=== PATIENT | female | born 2000 | race Caucasian/White ===

== ENCOUNTER 2019-08-10 22:28 | Inpatient (IN) | payer SELFPAY | END 2019-08-13 11:35 | disposition home or self-care (01) | DRG 885 | DX: F31.81 Bipolar II disorder (principal); R45.851 Suicidal ideations; Z28.21 Immunization not carried out because of patient refusal ==

== ENCOUNTER → 2020-04-17 15:34 | Outpatient (BNVA) | payer OTHER, SELFPAY | PROVIDERS: Visit Provider Nurse Practitioner Family | DX: M54.9 Dorsalgia, unspecified (principal); Z32.01 Encounter for pregnancy test, result positive | CPT/HCPCS: 81000; 81025 ==

== ENCOUNTER 2020-04-20 23:20 | Emergency (ER) | payer OTHER, SELFPAY ==
--- NOTE | 2020-04-21 00:01 | USR_ITS ---
PROCEDURE INFORMATION: Exam: US Pelvis, Transvaginal Exam date and time: 04/20/2020 11:54 PM Age: 20 years old Clinical indication: Pelvic pain TECHNIQUE: Imaging protocol: Real-time transvaginal pelvic ultrasound with image documentation. Transvaginal imaging was used for better evaluation of the endometrium and adnexa. COMPARISON: No relevant prior studies available. FINDINGS: Uterus/cervix: Small amount of fluid in the uterine cavity, nonspecific. Right adnexa: Normal. No mass. Normal ovarian blood flow. Left adnexa: Normal. No mass. Normal ovarian blood flow. Free fluid: None. US/US transvaginal [id number] IMPRESSION: Small amount of fluid in the uterine cavity, nonspecific.
[2020-04-21 00:25] VITALS: BP 121/58; RESP 18; TEMP 36.8; O2SAT 98; BMI 33.5
--- NOTE | 2020-04-21 00:39 | W.ED.ABDPA2 ---
HPI - Abdominal Pain General: Chief Complaint: Abdominal Pain Stated Complaint: 4 weeks preg/abd pain Time Seen by Provider: 04/21/20 00:09 History of Present Illness: HPI narrative: Complains of abdominal pain last couple days burping and some gas constipation is 4 weeks . MD elicited complaint: abdominal pain Pertinent past history: constipation and other Onset (ago): day(s) Pain Consistency: intermittent Location: Diffuse Severity: mild Quality: cramping Radiation: none Migration to: no migration Exacerbating factors: nothing Relieving factors: nothing Associated Symptoms: Reports belching and constipation; Denies chills and fever(s) Related Data: Date of Last Menstrual Period: 03/20/20 Review of Systems Const: Denies: fever(s), chills or body aches Eyes: Denies: change in vision or blurry vision ENMT: Denies: throat pain or nasal congestion Card: Denies: chest pain or dyspnea on exertion Resp: Denies: dyspnea, productive cough or non-productive cough GI: Reports: constipation and belching : Denies: difficulty voiding, urinary frequency, urinary urgency, vaginal odor, vaginal bleeding, vaginal discharge, metrorrhagia or pelvic pain Musc: Denies: extremity pain Skin/Breast: Denies: rash Neuro: Denies: headache(s) Psych: Denies: anxiety or depression Scott/Lymph: Denies: easy bruising [facility] ED PFSH: Social History (Updated 04/17/20 @ 15:32 by Rosy Ledesma LPN) Smoking and tobacco status: current every day smoker Female Reproductive History: Date of last menstrual period: 03/20/20 Physical Exam Const: COMMON NORMALS: no acute distress, average body habitus and patient oriented x3 HENMT: COMMON NORMALS: normocephalic HEAD & SCALP: normal to inspection and normocephalic FACE & SINUS: normal facial exam Eye: COMMON NORMALS: conjunctivae normal GENERAL EYE: appearance normal, both eyes and all related structures CONJUNCTIVA: Yes conjunctivae normal Neck/C-Spine: COMMON NORMALS: no JVD Chest: COMMONS NORMALS: normal inspection of the chest Resp: COMMON NORMALS: normal respiratory effort and clear to auscultation bilaterally AUSCULTATION: clear to auscultation bilaterally Cardio: COMMON NORMALS: no JVD, regular rate and regular rhythm RATE: regular rate RHYTHM: regular rhythm GI: COMMON NORMALS: Normal to inspection, nondistended, normoactive bowel sounds present PALPATION: Yes Tenderness to palpation present (GI) (Epigastric) Details: LLQ and RLQ Extremity: COMMON NORMALS: normal to inspection and full ROM Neuro: COMMON NORMALS: patient oriented x3 Course Vital Signs: Vital signs: Vital Signs Temperature 98.3 F 04/21/20 00:25 Respiratory Rate 18 04/21/20 00:25 Blood Pressure 121/58 04/21/20 00:25 Pulse Oximetry 98 04/21/20 00:25 Discharge Plan Discharge Prescriptions: No Action No Known Home Medications RF: 0 Coding Level of Care Code ED Director Of Bands for Chg Fwd Exam Comprehensive
[2020-04-21] MEDS: ondansetron 4 MG Tablet PO (00:50)
[2020-04-21 01:02] LABS: Add Urine Microscopic? NO
[2020-04-21 01:03] LABS: Basophils % 0.3 %; Eosinophils # 0.1 10^3/uL (0.0-0.8); Eosinophils % 1.5 %; Hematocrit 36.7 % (37.0-47.0); Hemoglobin 11.7 g/dL (11.5-15.3); Lymphocytes # 2.7 10^3/uL (0.8-4.8); Lymphocytes % 31.6 %; Mean Corpuscular HGB Conc 31.9 g/dL (30.0-36.0); Mean Corpuscular Hemoglobin 28.5 pg (28.0-34.0); Mean Corpuscular Volume 89.5 fL (81-99); Mean Platelet Volume 10.2 fL (7.4-10.4); Monocytes # 0.6 10^3/uL (0.2-0.9); Monocytes % 7.5 %; Neutrophils # 5.05 10^3/uL (1.8-7.7); Neutrophils % 58.9 %; Nucleated Red Blood Cells % 0 %; Platelet Count 293 10^3/cmm (130-400); Red Cell Distribution Width 13.2 % (12.1-15.1); White Blood Count 8.6 10^3/uL (4.0-10.0)
[2020-04-21 01:09] LABS: Bilirubin Urine Neg (NEGATIVE); Blood Urine Neg (Negative); Glucose Urine UA Norm (Normal); Ketones Urine Negative (Negative); Leukocyte Esterase Urine Negative (Negative); Nitrate Urine Negative (Negative); Protein Urine Neg (Negative); Sulfosalicylic Acid Urine Negative (Negative); Urine Appearance Clear (CLEAR); Urine Color Yellow (Yellow); Urobilinogen Urine Norm (Negative); pH Urine 8 (5-7)
[2020-04-21 01:32] LABS: Anion Gap 12.9 (5-19); Blood Urea Nitrogen 7 mg/dL (6-20); Calcium 9.2 mg/dL (8.5-10.5); Carbon Dioxide 21 mmol/L (22-29); Chloride 105 mmol/L (98-107); Glomerular Filtration Rate 154.3 mL/min (90-130); Glucose 105 mg/dL (65-115); Osmolality Calculated 276 mOsm/kg (285-295); Potassium 3.9 mmol/L (3.5-5.1); Sodium 135 mmol/L (136-145)
[2020-04-21 01:37] VITALS: BP 128/64; PULSE 74; RESP 16; O2SAT 100
== END 2020-04-21 01:43 | disposition home or self-care (01) ==
PROVIDERS: Emergency Provider Nurse Practitioner Family
DX: O26.891 Other specified pregnancy related conditions, first trimester (principal); R10.9 Unspecified abdominal pain; Z3A.01 Less than 8 weeks gestation of pregnancy; O99.331 Smoking (tobacco) complicating pregnancy, first trimester; F17.210 Nicotine dependence, cigarettes, uncomplicated
CPT/HCPCS: 12345; 76830; 80048; 81003; 84702; 85025; 99282; 99283; Q0162

== ENCOUNTER 2020-04-29 04:10 | Emergency (ER) | payer MEDICAID, SELFPAY ==
[2020-04-29 04:16] VITALS: BP 109/70; PULSE 100; RESP 20; TEMP 36.6; O2SAT 97; BMI 34.3
--- NOTE | 2020-04-29 04:35 | US_ITS ---
WS: [id number] EXAM: TRANSABDOMINAL PELVIC SONOGRAM DATE OF EXAMINATION: 04/29/2020, 0502 hours COMPARISON: Transvaginal pelvic sonogram from 04/21/2020. HISTORY: 20-year-old complaining of pelvic pain. LMP 03/20/2020. 3 para 1. FINDINGS: Uterus is anteverted. Measurements of the uterus were not obtained. Intrauterine gestational sac is i dentified. Left ovary is 2.6 x 2.9 x 2.8 cm in size. Color flow and spectral Doppler demonstrates venous and art erial flow within the left ovary. Arterial velocity 28.8 cm/s. The right ovary is 2.98 x 2.4 x 2.8 cm in size. Color flow and spectral Doppler demonstrates venous and arterial flow within the right ovar y. Arterial velocity 41.7 cm/s. Tiny pole is seen within the uterine cavity estimated at 2 mm in length correlating with a 25 w [place] 5 day gestation. heart tones 116 bpm. No free fluid in the pelvis is seen. US/US OB <= 14 weeks fetus [id number] IMPRESSION: Single live intrauterine gestation with a crown-rump length of 0.21 cm correlat ing with a 5 week 5 day gestation. Estimated date of confinement 12/25/2020. Fet al heart tones 116 bpm. Normal appearance to both ovaries without ectopic demonstrated.
--- NOTE | 2020-04-29 05:00 | W.ED.ABDPA2 ---
Documented by User: Yessica Jensen 04/29/20 05:32 HPI - Abdominal Pain General: Chief Complaint: Abdominal Pain Stated Complaint: lower abd pain/5wks pg Time Seen by Provider: 04/29/20 04:23 Source: patient and family Mode of arrival: ambulatory Limitations: no limitations History of Present Illness: HPI narrative: Bashir is a nice 20-year-old female who comes in complaining of lower abdominal pain. States the pain is been present for the past 4 days and progressively getting worse. She has pain in the midline that radiates out to the right and left lower quadrants. She denies any vaginal discharge or bleeding. Patient claims that she is 4 to 5 weeks by dates. This would be her third she is had a previously healthy child and 1 miscarriage. Patient denies any nausea or vomiting. She has any diarrhea or constipation. She states she feels like pressure in her pelvis like she needs to urinate but cannot. She denies any urinary frequency, urgency or dysuria. She is unaware of anything that makes her symptoms better or worse. She is not tried nothing at home for this prior to coming in. Associated Symptoms: Reports nausea; Denies chills, coffee ground emesis, constipation, GI cramping, diarrhea, dysuria, fever(s), heartburn, hematochezia, hematuria, hematemesis, melena, syncope and vomiting Related Data: Date of Last Menstrual Period: 03/20/20 Review of Systems Const: Denies: fever(s), chills, body aches, fatigue, malaise or diaphoresis Eyes: Denies: change in vision, blurry vision, photophobia, eye discomfort, eye discharge, eye redness or yellow eyes ENMT: Denies: throat pain, odynophagia, hoarseness, swelling of lips/tongue, ear or mastoid pain, ear discharge, change in hearing or nasal discharge Card: Denies: chest pain, palpitations, irregular heart rhythm, edema, lightheadedness, syncope, pre-syncope, dyspnea on exertion or orthopnea Resp: Denies: dyspnea, productive cough, non-productive cough, wheezing, hemoptysis or chest congestion GI: Reports: abdominal pain and nausea; Denies: vomiting, hematemesis, coffee ground emesis, heartburn, diarrhea, constipation, GI cramping, hematochezia or melena : Denies: flank pain, dysuria, urinary frequency, urinary urgency or hematuria Musc: Denies: neck pain, back pain, extremity pain, extremity swelling, joint pain, joint swelling, joint redness, joint warmth or joint stiffness Skin/Breast: Denies: rash, pruritus, erythema, skin pain or skin tenderness Neuro: Denies: headache(s), numbness in extremities, weakness in extremities, sensory changes, lack of coordination, difficulty walking, dizziness, vertigo, confusion, Slurred speech present or seizure-like activity Scott/Lymph: Denies: easy bruising, easy bleeding, petechiae, purpura or enlarged lymph nodes All/Imm: Denies: urticaria, throat swelling, tongue swelling, facial swelling or acute wheezing PFSH ED PFSH: Medical History (Updated 04/29/20 @ 06:44 by Bib Leger DO) No pertinent past medical history Surgical History (Updated 04/29/20 @ 05:08 by Yessica Jensen) S/P cholecystectomy Social History (Updated 04/17/20 @ 15:32 by Rosy Ledesma LPN) Smoking and tobacco status: current every day smoker Female Reproductive History: Date of last menstrual period: 03/20/20 Physical Exam Const: COMMON NORMALS: no acute distress, patient oriented x3, no limitations and alert GENERAL APPEARANCE: cooperative HENMT: COMMON NORMALS: normocephalic, atraumatic, external ears normal, EAC's normal and Normal external nose present HEAD & SCALP: normal to inspection, normocephalic and atraumatic FACE & SINUS: normal facial exam and face symmetric NOSE: Normal external nose present and Normal nares present EXTERNAL EAR: Yes external ears normal EXTERNAL AUDITORY CANAL: EAC's normal MOUTH: Normal oral and palatal mucosa present, lip normal and tongue normal Eye: COMMON NORMALS: Equal, round and reactive pupils present and conjunctivae normal GENERAL EYE: appearance normal, both eyes and all related structures ALIGNMENT: Yes alignment normal PERIORBITAL: periorbital findings normal EYELID: eyelids normal CONJUNCTIVA: Yes conjunctivae normal SCLERA: sclerae normal PUPIL: Yes Equal, round and reactive pupils present Neck/C-Spine: COMMON NORMALS: full ROM, no lymphadenopathy, supple, no meningeal signs and no JVD GENERAL: Yes normal visual inspection and Yes trachea midline Chest: COMMONS NORMALS: normal inspection of the chest and normal palpation of entire chest wall Resp: COMMON NORMALS: normal respiratory effort, No retractions, No use of accessory muscles and clear to auscultation bilaterally EFFORT & INSPECTION: Yes able to speak in complete sentences and Yes symmetric chest movement AUSCULTATION: clear to auscultation bilaterally, no crackles, no rales, no rhonchi and no wheezes Cardio: COMMON NORMALS: no JVD, regular rate, regular rhythm, S1 normal heart sound present and S2 normal heart sound present RATE: regular rate RHYTHM: regular rhythm HEART SOUNDS: S1 normal heart sound present, S2 normal heart sound present, no click, no gallops, no murmurs and no rubs GI: COMMON NORMALS: Soft to palpation and No hepatosplenomegaly present PALPATION: Yes Soft to palpation, No Tenderness to palpation present (GI), No Guarding due to palpation present (GI), No Rigid due to palpation, Yes No hepatosplenomegaly present, No Hernia present, No Palpable mass present and No Pulsatile mass present : COMMON NORMALS: Yes no CVA tenderness BLADDER/KIDNEY EXAM: Yes no CVA tenderness EXTERNAL FEMALE EXAM: No Hernia present OTHER: External vagina normal. Speculum exam reveals a closed cervix without any evidence of discharge, bleeding or erythema. On manual exam patient had mild cervical motion tenderness but no adnexal masses or tenderness. Back/Pelvis: COMMON NORMALS: no CVA tenderness, thoracic and lumbar spine normal to inspection, no thoracic nor lumbar tenderness and thoraco-lumbar ROM normal Extremity: COMMON NORMALS: normal to inspection, full ROM, capillary refill normal, no joint enlargement, no clubbing, cyanosis or edema and no calf tenderness Neuro: COMMON NORMALS: patient oriented x3, CN's II-XII intact bilaterally, moves all extremities, no focal motor deficits and no sensory deficits noted SENSORIUM/ORIENTATION: Yes alert MENINGEAL SIGNS: Yes no meningeal signs SPEECH: speech normal Psych: COMMON NORMALS: mental status grossly normal, Normal thought process present, cooperative, normal affect, speech normal and activity/motor behavior normal SPEECH: Yes normal speech THOUGHT PROCESS: Normal thought process present Skin: COMMON NORMALS: no rashes or lesions noted, turgor normal, no jaundice, no petechiae and no mottling GENERAL SKIN EXAM: no rashes or lesions noted and turgor normal Course Vital Signs: Vital signs: Vital Signs Temperature 97.9 F 04/29/20 04:16 Pulse Rate 100 04/29/20 04:16 Respiratory Rate 18 04/29/20 05:30 Blood Pressure 109/70 04/29/20 04:16 Pulse Oximetry 99 04/29/20 05:30 MDM - Abdominal Pain Lab Data: Labs: Lab Results 04/29/20 04/29/20 04/29/20 Range/Units 04:55 04:55 04:55 WBC 8.1 (4.0-10.0) 10^3/ uL RBC 4.18 (4.1-5.3) 10^6/u L Hgb 11.8 (11.5-15.3) g/dL Hct 37.2 (37.0-47.0) % MCV 89.0 (81-99) fL MCH 28.2 (28.0-34.0) pg MCHC 31.7 (30.0-36.0) g/dL RDW 13.2 (12.1-15.1) % Plt Count 314 (130-400) 10^3/c mm MPV 10.3 (7.4-10.4) fL Neut % (Auto) 60.1 % Lymph % (Auto) 31.0 % [place] % (Auto) 7.4 % Eos % (Auto) 1.2 % Baso % (Auto) 0.2 % Neut # (Auto) 4.86 (1.8-7.7) 10^3/u L Lymph # (Auto) 2.5 (0.8-4.8) 10^3/u L [place] # (Auto) 0.6 (0.2-0.9) 10^3/u L Eos # (Auto) 0.1 (0.0-0.8) 10^3/u L Baso # (Auto) 0.0 (0.0-0.1) 10^3/u L Nucleated RBC % (a uto) 0 % Nucleated RBCs # 0.0 /100WBC Sodium 135 L (136-145) mmol/L Potassium 4.0 (3.5-5.1) mmol/L Chloride 104 (98-107) mmol/L Carbon Dioxide 20 L (22-29) mmol/L Anion Gap 15.0 (5-19) BUN 7 (6-20) mg/dL Creatinine 0.4 L (0.5-0.9) mg/dL GFR Calculation 199.6 H (90-130) mL/min Glucose 94 (65-115) mg/dL Calculated Osmolal ity 276 L (285-295) mOsm/k g Calcium 9.2 (8.5-10.5) mg/dL Total Bilirubin 0.2 (0.15-1.2) mg/dL AST 16 (0-32) U/L ALT 24 (0-33) U/L Alkaline Phosphata se 77 (35-105) IU/L Total Protein 7.2 (6.6-8.7) g/dL Albumin 4.2 (3.5-5.2) g/dL Globulin 3.0 (1.3-4.6) g/dL Ser , [place]Qnt 80356.00 mIU/mL Urine Color (Yellow) Urine Appearance (CLEAR) Urine pH (5-7) Ur Specific Gravit y (1.005-1.030) Urine Protein (Negative) Urine Glucose (UA) (Normal) Urine Ketones (Negative) Urine Blood (Negative) Urine Nitrate (Negative) Urine Bilirubin (Negative) Urine Urobilinogen (Negative) mg/dL Ur Leukocyte Leisa ase (Negative) Blood Type B Positive Rho(D) Type Positive 04/29/20 Range/Units 05:08 WBC (4.0-10.0) 10^3/ uL RBC (4.1-5.3) 10^6/u L Hgb (11.5-15.3) g/dL Hct (37.0-47.0) % MCV (81-99) fL MCH (28.0-34.0) pg MCHC (30.0-36.0) g/dL RDW (12.1-15.1) % Plt Count (130-400) 10^3/c mm MPV (7.4-10.4) fL Neut % (Auto) % Lymph % (Auto) % [place] % (Auto) % Eos % (Auto) % Baso % (Auto) % Neut # (Auto) (1.8-7.7) 10^3/u L Lymph # (Auto) (0.8-4.8) 10^3/u L [place] # (Auto) (0.2-0.9) 10^3/u L Eos # (Auto) (0.0-0.8) 10^3/u L Baso # (Auto) (0.0-0.1) 10^3/u L Nucleated RBC % (a uto) % Nucleated RBCs # /100WBC Sodium (136-145) mmol/L Potassium (3.5-5.1) mmol/L Chloride (98-107) mmol/L Carbon Dioxide (22-29) mmol/L Anion Gap (5-19) BUN (6-20) mg/dL Creatinine (0.5-0.9) mg/dL GFR Calculation (90-130) mL/min Glucose (65-115) mg/dL Calculated Osmolal ity (285-295) mOsm/k g Calcium (8.5-10.5) mg/dL Total Bilirubin (0.15-1.2) mg/dL AST (0-32) U/L ALT (0-33) U/L Alkaline Phosphata se (35-105) IU/L Total Protein (6.6-8.7) g/dL Albumin (3.5-5.2) g/dL Globulin (1.3-4.6) g/dL Ser , Nils i-Qnt mIU/mL Urine Color Yellow (Yellow) Urine Appearance Clear (CLEAR) Urine pH 7 (5-7) Ur Specific Gravit y 1.015 (1.005-1.030) Urine Protein Neg (Negative) Urine Glucose (UA) Norm (Normal) Urine Ketones Negative (Negative) Urine Blood Neg (Negative) Urine Nitrate Negative (Negative) Urine Bilirubin Neg (Negative) Urine Urobilinogen Norm (Negative) mg/dL Ur Leukocyte Leisa ase Negative (Negative) Blood Type Rho(D) Type Imaging Data ^: US OB: My impression: Tech interpretation -5-week 5-day intrauterine with a heart rate of 112 beats a minute. No subchorionic bleed. No free fluid. Bilateral ovaries normal with no evidence of torsion. No tubo-ovarian abscess. Discharge Plan Discharge Patient Disposition: Home Clinical Impression: Round ligament pain Condition: Stable Prescriptions: New PNV 29-1 29 mg iron- 1 mg tablet 1 tab PO DAILY Qty: 90 RF: 0 Discharge Orders: Discharge Order (Routine); Ordered 04/29/20 Ordered By: Bib Leger Discharge Diet: Usual diet Discharge Activity: Increase activity as tolerated Activity Restrictions/Additional Instructions: Establish with OB as soon as you are able. Sign Out Sign Out Data: Patient Sign Out occurred on 04/29/20 at 06:08. Patient's care was discussed, and care was transferred from Yessica Jensen to Bib Leger DO. Sign Out Comment: Case turned over to Dr. Leger at change of shift Last updated by Yessica Jensen at 04/29/20 05:46 Coding Level of Care Code ED Hvac Maintenance Technician for Chg Fwd Exam Comprehensive Documented by User: Bib Leger DO 04/29/20 06:45 HPI - Abdominal Pain General: Chief Complaint: Abdominal Pain Stated Complaint: lower abd pain/5wks pg Time Seen by Provider: 04/29/20 04:23 PFSH ED PFSH: Medical History (Updated 04/29/20 @ 06:44 by Bib Leger DO) No pertinent past medical history Surgical History (Updated 04/29/20 @ 05:08 by Yessica Jensen) S/P cholecystectomy Social History (Updated 04/17/20 @ 15:32 by Rosy Ledesma LPN) Smoking and tobacco status: current every day smoker Course Vital Signs: Vital signs: Vital Signs Temperature 97.9 F 04/29/20 04:16 Pulse Rate 100 04/29/20 04:16 Respiratory Rate 18 04/29/20 05:30 Blood Pressure 109/70 04/29/20 04:16 Pulse Oximetry 99 04/29/20 05:30 MDM - Abdominal Pain MDM Narrative: Medical decision making narrative: 20-year-old G3, P1 SAB 1 female at 5 weeks 5 days gestation by ultrasound with a confirmed IUP with heart tones. Presented to Dr. Garzon with complaint of abdominal pain for several days. GC and Chlamydia are pending wet mount normal white count negative urine unremarkable. Suspect this is due to round ligament pain will discharge home return if has any further problems. Lab Data: Labs: Lab Results 04/29/20 04/29/20 04/29/20 Range/Units 04:55 04:55 04:55 WBC 8.1 (4.0-10.0) 10^3/ uL RBC 4.18 (4.1-5.3) 10^6/u L Hgb 11.8 (11.5-15.3) g/dL Hct 37.2 (37.0-47.0) % MCV 89.0 (81-99) fL MCH 28.2 (28.0-34.0) pg MCHC 31.7 (30.0-36.0) g/dL RDW 13.2 (12.1-15.1) % Plt Count 314 (130-400) 10^3/c mm MPV 10.3 (7.4-10.4) fL Neut % (Auto) 60.1 % Lymph % (Auto) 31.0 % [place] % (Auto) 7.4 % Eos % (Auto) 1.2 % Baso % (Auto) 0.2 % Neut # (Auto) 4.86 (1.8-7.7) 10^3/u L Lymph # (Auto) 2.5 (0.8-4.8) 10^3/u L [place] # (Auto) 0.6 (0.2-0.9) 10^3/u L Eos # (Auto) 0.1 (0.0-0.8) 10^3/u L Baso # (Auto) 0.0 (0.0-0.1) 10^3/u L Nucleated RBC % (a uto) 0 % Nucleated RBCs # 0.0 /100WBC Sodium 135 L (136-145) mmol/L Potassium 4.0 (3.5-5.1) mmol/L Chloride 104 (98-107) mmol/L Carbon Dioxide 20 L (22-29) mmol/L Anion Gap 15.0 (5-19) BUN 7 (6-20) mg/dL Creatinine 0.4 L (0.5-0.9) mg/dL GFR Calculation 199.6 H (90-130) mL/min Glucose 94 (65-115) mg/dL Calculated Osmolal ity 276 L (285-295) mOsm/k g Calcium 9.2 (8.5-10.5) mg/dL Total Bilirubin 0.2 (0.15-1.2) mg/dL AST 16 (0-32) U/L ALT 24 (0-33) U/L Alkaline Phosphata se 77 (35-105) IU/L Total Protein 7.2 (6.6-8.7) g/dL Albumin 4.2 (3.5-5.2) g/dL Globulin 3.0 (1.3-4.6) g/dL Ser , [place]Qnt 63780.00 mIU/mL Urine Color (Yellow) Urine Appearance (CLEAR) Urine pH (5-7) Ur Specific Gravit y (1.005-1.030) Urine Protein (Negative) Urine Glucose (UA) (Normal) Urine Ketones (Negative) Urine Blood (Negative) Urine Nitrate (Negative) Urine Bilirubin (Negative) Urine Urobilinogen (Negative) mg/dL Ur Leukocyte Leisa ase (Negative) Blood Type B Positive Rho(D) Type Positive 04/29/20 Range/Units 05:08 WBC (4.0-10.0) 10^3/ uL RBC (4.1-5.3) 10^6/u L Hgb (11.5-15.3) g/dL Hct (37.0-47.0) % MCV (81-99) fL MCH (28.0-34.0) pg MCHC (30.0-36.0) g/dL RDW (12.1-15.1) % Plt Count (130-400) 10^3/c mm MPV (7.4-10.4) fL Neut % (Auto) % Lymph % (Auto) % [place] % (Auto) % Eos % (Auto) % Baso % (Auto) % Neut # (Auto) (1.8-7.7) 10^3/u L Lymph # (Auto) (0.8-4.8) 10^3/u L [place] # (Auto) (0.2-0.9) 10^3/u L Eos # (Auto) (0.0-0.8) 10^3/u L Baso # (Auto) (0.0-0.1) 10^3/u L Nucleated RBC % (a uto) % Nucleated RBCs # /100WBC Sodium (136-145) mmol/L Potassium (3.5-5.1) mmol/L Chloride (98-107) mmol/L Carbon Dioxide (22-29) mmol/L Anion Gap (5-19) BUN (6-20) mg/dL Creatinine (0.5-0.9) mg/dL GFR Calculation (90-130) mL/min Glucose (65-115) mg/dL Calculated Osmolal ity (285-295) mOsm/k g Calcium (8.5-10.5) mg/dL Total Bilirubin (0.15-1.2) mg/dL AST (0-32) U/L ALT (0-33) U/L Alkaline Phosphata se (35-105) IU/L Total Protein (6.6-8.7) g/dL Albumin (3.5-5.2) g/dL Globulin (1.3-4.6) g/dL Ser , Nils i-Qnt mIU/mL Urine Color Yellow (Yellow) Urine Appearance Clear (CLEAR) Urine pH 7 (5-7) Ur Specific Gravit y 1.015 (1.005-1.030) Urine Protein Neg (Negative) Urine Glucose (UA) Norm (Normal) Urine Ketones Negative (Negative) Urine Blood Neg (Negative) Urine Nitrate Negative (Negative) Urine Bilirubin Neg (Negative) Urine Urobilinogen Norm (Negative) mg/dL Ur Leukocyte Leisa ase Negative (Negative) Blood Type Rho(D) Type Discharge Plan Discharge Patient Disposition: Home Clinical Impression: Round ligament pain Condition: Stable Prescriptions: New PNV 29-1 29 mg iron- 1 mg tablet 1 tab PO DAILY Qty: 90 RF: 0 Discharge Orders: Discharge Order (Routine); Ordered 04/29/20 Ordered By: Bib Leger Discharge Diet: Usual diet Discharge Activity: Increase activity as tolerated Activity Restrictions/Additional Instructions: Establish with OB as soon as you are able. Sign Out Sign Out Data: Patient Sign Out occurred on 04/29/20 at 06:08. Patient's care was discussed, and care was transferred from Yessica Jensen to Bib Leger DO. Sign Out Comment: Case turned over to Dr. Leger at change of shift Last updated by Yessica Jensen at 04/29/20 05:46 Coding Level of Care Code ED Hvac Maintenance Technician for Chg Fwd Exam Comprehensive
[2020-04-29 05:09] LABS: Basophils % 0.2 %; Eosinophils # 0.1 10^3/uL (0.0-0.8); Eosinophils % 1.2 %; Hematocrit 37.2 % (37.0-47.0); Hemoglobin 11.8 g/dL (11.5-15.3); Lymphocytes # 2.5 10^3/uL (0.8-4.8); Mean Corpuscular HGB Conc 31.7 g/dL (30.0-36.0); Mean Corpuscular Hemoglobin 28.2 pg (28.0-34.0); Mean Platelet Volume 10.3 fL (7.4-10.4); Monocytes # 0.6 10^3/uL (0.2-0.9); Monocytes % 7.4 %; Neutrophils # 4.86 10^3/uL (1.8-7.7); Neutrophils % 60.1 %; Nucleated Red Blood Cells % 0 %; Platelet Count 314 10^3/cmm (130-400); Red Blood Count 4.18 10^6/uL (4.1-5.3); Red Cell Distribution Width 13.2 % (12.1-15.1); White Blood Count 8.1 10^3/uL (4.0-10.0)
[2020-04-29] MEDS: metoclopramide 5 mg/mL SDV 2 mL 10 MG IV (05:25)
[2020-04-29 05:30] VITALS: RESP 18; O2SAT 99
[2020-04-29] MEDS: morphine 4 mg/mL SDV 1 mL IVP (05:30)
[2020-04-29 05:36] LABS: Alanine Aminotransferase 24 U/L (0-33); Albumin Level 4.2 g/dL (3.5-5.2); Alkaline Phosphatase 77 IU/L (35-105); Aspartate Amino Transferase 16 U/L (0-32); Blood Urea Nitrogen 7 mg/dL (6-20); Calcium 9.2 mg/dL (8.5-10.5); Carbon Dioxide 20 mmol/L (22-29); Chloride 104 mmol/L (98-107); Glomerular Filtration Rate 199.6 mL/min (90-130); Glucose 94 mg/dL (65-115); Osmolality Calculated 276 mOsm/kg (285-295); Sodium 135 mmol/L (136-145); Total Bilirubin 0.2 mg/dL (0.15-1.2); Total Protein 7.2 g/dL (6.6-8.7)
[2020-04-29 06:05] LABS: Add Urine Microscopic? NO
[2020-04-29 06:26] LABS: Bilirubin Urine Neg (Negative); Blood Urine Neg (Negative); Glucose Urine UA Norm (Normal); Ketones Urine Negative (Negative); Leukocyte Esterase Urine Negative (Negative); Nitrate Urine Negative (Negative); Protein Urine Neg (Negative); Specific Gravity, Urine 1.015 (1.005-1.030); Urine Appearance Clear (CLEAR); Urine Color Yellow (Yellow); Urobilinogen Urine Norm (Negative); pH Urine 7 (5-7)
[2020-04-29 06:54] VITALS: BP 92/48; PULSE 95; RESP 18; TEMP 36.4; O2SAT 95
== END 2020-04-29 06:57 | disposition home or self-care (01) ==
PROVIDERS: Emergency Medicine; Emergency Provider Family Medicine
DX: O26.891 Other specified pregnancy related conditions, first trimester (principal); R10.2 Pelvic and perineal pain; Z3A.01 Less than 8 weeks gestation of pregnancy; O99.331 Smoking (tobacco) complicating pregnancy, first trimester; F17.210 Nicotine dependence, cigarettes, uncomplicated
CPT/HCPCS: 12345; 76801; 80053; 81003; 84702; 85025; 86900; 87210; 87491; 87591; 96374; 96375; 99283; 99284; J2270; J2765

== ENCOUNTER 2020-05-04 21:47 | Emergency (ER) | payer MEDICAID, SELFPAY ==
[2020-05-04 21:56] VITALS: BP 125/79; PULSE 92; RESP 14; TEMP 36.6; O2SAT 99; BMI 34.3
[2020-05-04 22:11] VITALS: BP 123/67; PULSE 90; RESP 18; O2SAT 99
--- NOTE | 2020-05-04 22:11 | XRR_ITS ---
PROCEDURE INFORMATION: Exam: XR Chest, 1 View Exam date and time: 05/04/2020 10:57 PM Age: 20 years old Clinical indication: Chest pain; Type not specified; Patient HX: C/O shortness of breath ; congestion; Additional info: Cp TECHNIQUE: Imaging protocol: XR of the chest Views: 1 view. COMPARISON: No relevant prior studies available. FINDINGS: Lungs: Lungs are well aerated without a focal area of consolidation. Pleural space: Unremarkable. No pleural effusion. No pneumothorax. Heart/Mediastinum: Unremarkable. No cardiomegaly. Bones/joints: Unremarkable. XR/XR chest 1V portable [id number] IMPRESSION: Lungs are well aerated without a focal area of consolidation.
--- NOTE | 2020-05-04 22:12 | W.ED.GENADLT ---
HPI - General Adult General: Chief complaint: General Medical Stated complaint: sob Time Seen by Provider: 05/04/20 21:59 Source: patient Mode of arrival: ambulatory Limitations: no limitations History of Present Illness: HPI narrative: 20-year-old female who is currently 6 weeks . She states that she has had nasal congestion along with sinus issues. States she feels like it is allergies. She has had a slight cough. Denies any fever. She states she has had abdominal cramping. Patient was seen here 5 days ago and had a normal ultrasound. She denies any vaginal bleeding or discharge. Associated symptoms: Reports nausea; Deny chest pain, dyspnea, headache(s) or rash Review of Systems Const: Denies: fever(s), chills, body aches or change in appetite Eyes: Denies: blurry vision or eye discomfort ENMT: Reports: nasal discharge Card: Denies: chest pain Resp: Denies: dyspnea GI: Reports: abdominal pain and nausea : Denies: dysuria Musc: Denies: neck pain or back pain Skin/Breast: Denies: rash Neuro: Denies: headache(s) Psych: Denies: depression Scott/Lymph: Denies: easy bruising All/Imm: Denies: urticaria PFSH ED PFSH: Medical History No pertinent past medical history Surgical History S/P cholecystectomy Social History Smoking and tobacco status: current every day smoker Female Reproductive History: Date of last menstrual period: 03/20/20 Physical Exam Const: COMMON NORMALS: no acute distress, patient oriented x3 and healthy appearing HENMT: COMMON NORMALS: normocephalic and atraumatic HEAD & SCALP: normocephalic and atraumatic Eye: COMMON NORMALS: Equal, round and reactive pupils present and EOMs intact bilaterally PUPIL: Yes Equal, round and reactive pupils present Neck/C-Spine: COMMON NORMALS: full ROM and supple Chest: COMMONS NORMALS: normal inspection of the chest and normal palpation of entire chest wall Resp: COMMON NORMALS: normal respiratory effort, No retractions, No use of accessory muscles and clear to auscultation bilaterally AUSCULTATION: clear to auscultation bilaterally Cardio: COMMON NORMALS: regular rate, regular rhythm and No murmurs present (Cardio) RATE: regular rate RHYTHM: regular rhythm GI: COMMON NORMALS: Normal to inspection, nondistended, normoactive bowel sounds present, Soft to palpation, non-tender and no masses PALPATION: Yes Soft to palpation Extremity: COMMON NORMALS: normal to inspection and full ROM Neuro: COMMON NORMALS: patient oriented x3, moves all extremities and no focal motor deficits Psych: COMMON NORMALS: mental status grossly normal, Normal thought process present and cooperative THOUGHT PROCESS: Normal thought process present Skin: COMMON NORMALS: no rashes or lesions noted and no wounds GENERAL SKIN EXAM: no rashes or lesions noted Course Vital Signs: Vital signs: Vital Signs Temperature 97.9 F 05/04/20 21:56 Pulse Rate 90 05/04/20 22:55 Respiratory Rate 18 05/04/20 22:55 Blood Pressure 119/71 05/04/20 22:55 Pulse Oximetry 99 05/04/20 22:55 MDM - General Adult MDM Narrative: Medical decision making narrative: Patient presents with sinus congestion is likely allergies. Patient is well-appearing here and is stable for discharge. Patient had an ultrasound 5 days ago was normal. She has no bleeding exam here is benign. She is to follow-up with PCP in 3 to 5 days return if worsening. Lab Data: Labs: Lab Results 05/04/20 Range/Units 22:10 Urine Color Yellow (Yellow) Urine Appearance Clear (CLEAR) Urine pH 5 (5-7) Ur Specific Gravit y 1.020 (1.005-1.030) Urine Protein Neg (Negative) Urine Glucose (UA) Norm (Normal) Urine Ketones Negative (Negative) Urine Blood Neg (Negative) Urine Nitrate Negative (Negative) Urine Bilirubin Neg (Negative) Urine Urobilinogen Norm (Negative) mg/dL Ur Leukocyte Leisa ase Negative (Negative) Imaging Data^: CXR: Attestation: I personally reviewed and interpreted this imaging study as follows: My impression: No acute mildly Discharge Plan Discharge Patient Disposition: Home Clinical Impression: Round ligament pain, Sinus congestion Condition: Stable Prescriptions: No Action PNV 29-1 29 mg iron- 1 mg tablet 1 tab PO DAILY Qty: 90 RF: 0 Discharge Orders: Discharge Order (Routine); Ordered 05/04/20 Ordered By: Bibiana Poole Discharge Diet: Advance as tolerated Discharge Activity: Resume usual activity Patient Instructions: Allergic Rhinitis (ED) Coding Level of Care Code ED [employer] Mechanic for Chg Fwd Exam Comprehensive
[2020-05-04] MEDS: metoclopramide 5 mg/mL SDV 2 mL 10 MG IVP (22:22)
[2020-05-04] MEDS: diphenhydrAMINE 50 mg/mL SDV 1mL IVP (22:22)
[2020-05-04 22:27] LABS: Add Urine Microscopic? NO
[2020-05-04 22:35] LABS: Bilirubin Urine Neg (Negative); Blood Urine Neg (Negative); Glucose Urine UA Norm (Normal); Ketones Urine Negative (Negative); Leukocyte Esterase Urine Negative (Negative); Nitrate Urine Negative (Negative); Protein Urine Neg (Negative); Urine Appearance Clear (CLEAR); Urine Color Yellow (Yellow); Urobilinogen Urine Norm (Negative); pH Urine 5 (5-7)
[2020-05-04 22:55] VITALS: BP 119/71; PULSE 90; RESP 18; O2SAT 99
--- NOTE | 2020-05-04 23:19 | PC.NURSE ---
Attempt x [address] IV unsuccessful attempt x 2 by [address] nurse [address] Dr Poole stated hold IV give MEDS im- DONE
[2020-05-04 23:26] VITALS: PULSE 94; RESP 16; O2SAT 98
[2020-05-05 00:07] VITALS: BP 106/61; PULSE 78; RESP 16; O2SAT 98
[2020-05-07 03:12] LABS: Quest SARS-CoV-2 RNA NOT DETECTED (NOT DETECTED)
== END 2020-05-05 00:10 | disposition home or self-care (01) ==
PROVIDERS: Emergency Provider Emergency Medicine
DX: O26.891 Other specified pregnancy related conditions, first trimester (principal); R10.2 Pelvic and perineal pain; R09.81 Nasal congestion; O99.331 Smoking (tobacco) complicating pregnancy, first trimester; F17.210 Nicotine dependence, cigarettes, uncomplicated; Z3A.01 Less than 8 weeks gestation of pregnancy
CPT/HCPCS: 12345; 71045; 81003; 87635; 96374; 99282; 99283; J1200; J2765

== ENCOUNTER → 2020-06-20 17:20 | Outpatient (BNVA) | payer MEDICAID, SELFPAY | PROVIDERS: Visit Provider Nurse Practitioner | DX: Z20.828 Contact with and (suspected) exposure to other viral communicable diseases (principal); H66.92 Otitis media, unspecified, left ear; B34.9 Viral infection, unspecified | CPT/HCPCS: 87635 ==

== ENCOUNTER → 2020-06-24 10:34 | Outpatient (BNVA) | payer MEDICAID, SELFPAY | PROVIDERS: Visit Provider Obstetrics & Gynecology | DX: Z34.80 Encounter for supervision of other normal pregnancy, unspecified trimester (principal); Z83.3 Family history of diabetes mellitus | CPT/HCPCS: 80053; 80307; 83036; 84315; 85027; 86592; 86762; 86803; 86850; 86900; 87340; 87491; 87591; 87806 ==

== ENCOUNTER 2020-07-14 11:59 | Emergency (ER) | payer MEDICAID, SELFPAY ==
[2020-07-14 12:00] VITALS: BP 123/66; PULSE 92; RESP 20; TEMP 36.8; O2SAT 100; BMI 30.9
--- NOTE | 2020-07-14 12:11 | US_ITS ---
WS: [id number] ULTRASOUND EARLY TECHNIQUE: Transabdominal sonography of the pelvis was performed. CLINICAL INFORMATION: vaginal bleednig LMP: 03/20/2020 Beta hCG: Unknown. COMPARISON: Ultrasound April 29, 2020 FINDINGS: Cervix measures 4.5 cm UTERUS AND GESTATIONAL SAC Intrauterine gestations: Estimated gestational age: 17w2d Estimated delivery December 20, 2020 heart motion: 150 BPM. Subchorionic hemorrhage: Small amount of subchorionic hemorrhage at the cervical os. This area measur es 1.5 x 1.5 x 0.6 cm OVARIES Right ovary: Normal. Left ovary: Normal. FREE FLUID None. US/US OB limited [id number] IMPRESSION: 1. Single live intrauterine . 2. Estimated gestational age; 17w2d 3. Placenta previa overlying the cervical os. Recommend third trimester follow -up. 4. Suggestion of a small subchorionic hematoma near the cervical os. Recommend short interval follow-up.
[2020-07-14 12:34] LABS: Basophils % 0.1 %; Eosinophils % 0.3 %; Hematocrit 32.8 % (37.0-47.0); Hemoglobin 10.7 g/dL (11.5-15.3); Lymphocytes # 1.5 10^3/uL (0.8-4.8); Lymphocytes % 22.7 %; Mean Corpuscular HGB Conc 32.6 g/dL (30.0-36.0); Mean Corpuscular Hemoglobin 29.4 pg (28.0-34.0); Mean Corpuscular Volume 90.1 fL (81-99); Mean Platelet Volume 10.2 fL (7.4-10.4); Monocytes # 0.6 10^3/uL (0.2-0.9); Monocytes % 8.3 %; Neutrophils % 68.5 %; Nucleated Red Blood Cells % 0 %; Platelet Count 227 10^3/cmm (130-400); Red Blood Count 3.64 10^6/uL (4.1-5.3); Red Cell Distribution Width 14.6 % (12.1-15.1); White Blood Count 6.7 10^3/uL (4.0-10.0)
[2020-07-14] MEDS: ondansetron 4 MG Tablet PO (12:53)
[2020-07-14 13:09] LABS: Alanine Aminotransferase 13 U/L (0-33); Albumin Level 3.9 g/dL (3.5-5.2); Alkaline Phosphatase 68 IU/L (35-105); Anion Gap 15.8 (5-19); Aspartate Amino Transferase 11 U/L (0-32); Blood Urea Nitrogen 4 mg/dL (6-20); Carbon Dioxide 19 mmol/L (22-29); Chloride 106 mmol/L (98-107); Globulin 2.7 g/dL (1.3-4.6); Glomerular Filtration Rate 278.2 mL/min (90-130); Glucose 84 mg/dL (65-115); Lipase 15 U/L (13-60); Osmolality Calculated 280 mOsm/kg (285-295); Potassium 3.8 mmol/L (3.5-5.1); Sodium 137 mmol/L (136-145); Total Bilirubin 0.2 mg/dL (0.15-1.2); Total Protein 6.6 g/dL (6.6-8.7)
[2020-07-14 13:19] LABS: Add Urine Microscopic? YES; Bilirubin Urine Neg (Negative); Blood Urine Neg (Negative); Glucose Urine UA Norm (Normal); Ketones Urine 2+ (Negative); Leukocyte Esterase Urine Negative (Negative); Nitrate Urine Positive (Negative); Protein Urine Neg (Negative); Urine Appearance SL Hazy (CLEAR); Urine Color Yellow (Yellow); Urobilinogen Urine Norm (Negative); pH Urine 5 (5-7)
[2020-07-14 13:23] LABS: Add Urine Culture? Yes; Bacteria Urine 4+ /hpf
[2020-07-14] MEDS: nitrofurantoin SR (BID) 100 mg Capsule PO (13:51)
[2020-07-14 14:08] VITALS: BP 116/70; PULSE 87; RESP 16; O2SAT 100
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
[2020-07-14 15:39] VITALS: BP 131/57; PULSE 99; RESP 16; O2SAT 98
== END 2020-07-14 15:39 | disposition home or self-care (01) ==
PROVIDERS: Emergency Provider Registered Nurse
DX: O44.02 Complete placenta previa NOS or without hemorrhage, second trimester (principal); O23.42 Unspecified infection of urinary tract in pregnancy, second trimester; O99.332 Smoking (tobacco) complicating pregnancy, second trimester; F17.210 Nicotine dependence, cigarettes, uncomplicated; Z3A.17 17 weeks gestation of pregnancy
CPT/HCPCS: 12345; 76815; 80053; 81001; 83690; 84702; 85025; 87086; 99283; Q0162

== ENCOUNTER 2020-07-15 11:28 | Emergency (ER) | payer MEDICAID, SELFPAY ==
[2020-07-15 11:30] VITALS: BP 119/70; PULSE 97; RESP 18; TEMP 36.6; O2SAT 98; BMI 30.9
--- NOTE | 2020-07-15 11:38 | CT_ITS ---
WS: [id number] CT HEAD TECHNIQUE: Noncontrast CT of the head obtained from the skullbase to the vertex. CLINICAL INFORMATION: dizzy COMPARISON: None. DLP: 843.[address] scans at [facility] use at least one of these dose optimization techniques: automat ed exposure control; mA and/or kV adjustment per patient size (includes targeted exams where dose is matched to clinical indication); or iterative reconstruction. FINDINGS: No evidence of intracranial hemorrhage or mass effect. Ventricular system and basal cisterns are nielsen nt.No extra-axial fluid collections. No evidence of mass or mass effect. Normal landers-white differenti ation. Incidental pineal cyst. Paranasal sinuses and mastoid air cells are well aerated. .Normal visualized soft tissues. CT/CT head wo con* [id number] IMPRESSION: 1. No evidence of intracranial hemorrhage or mass effect. 2. Normal landers-white differentiation. 3. No acute intracranial findings.
--- NOTE | 2020-07-15 12:02 | ED_ITS ---
HPI - Dizziness General: Chief Complaint: Dizziness Stated Complaint: DIZZY, WEAK Time Seen by Provider: 07/15/20 11:32 Source: patient and EMS Mode of arrival: EMS Limitations: no limitations History of Present Illness: HPI Narrative: 20-year-old female who is currently 17 weeks . She states she has had dizziness along with weakness throughout . She is seen yesterday for vaginal bleeding ultrasound showed placenta previa and a small subchorionic hemorrhage. She denies any vaginal bleeding today but states she got dizzy and fell. Patient's vital signs here are normal. She denies any abdominal pain. Associated symptoms: Denies chest pain, chills, nausea or vomiting Review of Systems Const: Denies: fever(s), chills, body aches or change in appetite Eyes: Denies: blurry vision or eye discomfort ENMT: Denies: throat pain or dental pain Card: Denies: chest pain Resp: Denies: dyspnea GI: Denies: abdominal pain, nausea, vomiting or diarrhea : Denies: dysuria Musc: Denies: neck pain or back pain Skin/Breast: Denies: rash Neuro: Reports: dizziness Psych: Denies: depression Scott/Lymph: Denies: easy bruising All/Imm: Denies: urticaria PFSH ED PFSH: Medical History (Updated 07/15/20 @ 13:17 by Bibiana Poole MD) No pertinent past medical history neghx: htn,dm,thyroid,dvt/pe,herpes partner with herpes Surgical History S/P cholecystectomy Family History Father Diabetes Thyroid disease Family/Other Stroke Great Grandmother Family/Other Breast cancer Maternal Aunt Mother Uterine cancer Grandmother Uterine cancer Maternal Heart disease Maternal Grandfather Colon cancer Maternal Denies family history of Ovarian cancer Clotting disorder Hypercholesteremia Bleeding disorder Hypertension Social History Additional social history: - Tobacco use: smokes .5-1 pack per day-- used to smoke 3 packs prior to Alcohol use: Socially prior to Drug use: Former-- marijuana quit in 2018 Female Reproductive History: Date of last menstrual period: 03/20/20 Physical Exam Const: COMMON NORMALS: no acute distress, patient oriented x3 and healthy appearing HENMT: COMMON NORMALS: normocephalic and atraumatic HEAD & SCALP: normocephalic and atraumatic Eye: COMMON NORMALS: Equal, round and reactive pupils present and EOMs intact bilaterally PUPIL: Yes Equal, round and reactive pupils present Neck/C-Spine: COMMON NORMALS: full ROM and supple Chest: COMMONS NORMALS: normal inspection of the chest and normal palpation of entire chest wall Resp: COMMON NORMALS: normal respiratory effort, No retractions, No use of accessory muscles and clear to auscultation bilaterally AUSCULTATION: clear to auscultation bilaterally Cardio: COMMON NORMALS: regular rate, regular rhythm and No murmurs present (Cardio) RATE: regular rate RHYTHM: regular rhythm GI: COMMON NORMALS: Normal to inspection, nondistended, normoactive bowel sounds present, Soft to palpation, non-tender and no masses PALPATION: Yes Soft to palpation Extremity: COMMON NORMALS: normal to inspection and full ROM Neuro: COMMON NORMALS: patient oriented x3, moves all extremities and no focal motor deficits Psych: COMMON NORMALS: mental status grossly normal, Normal thought process present and cooperative THOUGHT PROCESS: Normal thought process present Skin: COMMON NORMALS: no rashes or lesions noted and no wounds GENERAL SKIN EXAM: no rashes or lesions noted Course Vital Signs: Vital signs: Vital Signs Temperature 98.8 F 07/15/20 13:28 Pulse Rate 74 07/15/20 13:28 Respiratory Rate 18 07/15/20 13:28 Blood Pressure 128/64 07/15/20 13:28 Pulse Oximetry 98 07/15/20 13:28 MDM - Dizziness MDM Narrative: Medical decision making narrative: Patient presents with di zziness along with generalized weakness. Patient is to continue her antibiotics for urinary tract infection. Her blood work here is normal. She no longer has any vaginal bleeding and her hemoglobin here is stable. CT head is normal with no signs of any intracranial causes for her weakness or dizziness. Patient is to take it very easy and drink fluids. She understands agrees to plan. Lab Data: Labs: Lab Results 07/15/20 07/15/20 Range/Units 12:00 12:00 WBC 5.9 (4.0-10.0) 10^3/ uL RBC 3.50 L (4.1-5.3) 10^6/u L Hgb 10.3 L (11.5-15.3) g/dL Hct 31.5 L (37.0-47.0) % MCV 90.0 (81-99) fL MCH 29.4 (28.0-34.0) pg MCHC 32.7 (30.0-36.0) g/dL RDW 14.8 (12.1-15.1) % Plt Count 216 (130-400) 10^3/c mm MPV 10.3 (7.4-10.4) fL Neut % (Auto) 69.9 % Lymph % (Auto) 21.6 % [place] % (Auto) 7.3 % Eos % (Auto) 0.7 % Baso % (Auto) 0.3 % Neut # (Auto) 4.10 (1.8-7.7) 10^3/u L Lymph # (Auto) 1.3 (0.8-4.8) 10^3/u L [place] # (Auto) 0.4 (0.2-0.9) 10^3/u L Eos # (Auto) 0.0 (0.0-0.8) 10^3/u L Baso # (Auto) 0.0 (0.0-0.1) 10^3/u L Nucleated RBC % (a uto) 0 % Nucleated RBCs # 0.0 /100WBC Sodium 135 L (136-145) mmol/L Potassium 3.8 (3.5-5.1) mmol/L Chloride 104 (98-107) mmol/L Carbon Dioxide 19 L (22-29) mmol/L Anion Gap 15.8 (5-19) BUN 5 L (6-20) mg/dL Creatinine 0.3 L (0.5-0.9) mg/dL GFR Calculation 278.2 H (90-130) mL/min Glucose 78 (65-115) mg/dL Calculated Osmolal ity 276 L (285-295) mOsm/k g Calcium 8.7 (8.5-10.5) mg/dL Total Bilirubin 0.2 (0.15-1.2) mg/dL AST 11 (0-32) U/L ALT 14 (0-33) U/L Alkaline Phosphata se 65 (35-105) IU/L Total Protein 6.6 (6.6-8.7) g/dL Albumin 3.7 (3.5-5.2) g/dL Globulin 2.9 (1.3-4.6) g/dL Imaging Data^: CT Head: Attestation: I personally reviewed and interpreted this imaging study as follows: Radiologist's impression: [address] [address] [address] Scan Report Signed Patient: Bashir Zacarias Unit #: [id number] : 2000 Age/Sex: 20 / F ADM Date: 07/15 Loc: ER Room/Bed: Attending Dr: Ordering Provider/Ordering MD: Bibiana Poole MD Date of Service: 07/15/20 Procedure(s): CT head wo con* [id number] Accession Number(s): [id number] Report Number: [id number] WS: [id number] CT HEAD TECHNIQUE: Noncontrast CT of the head obtained from the skullbase to the vertex. CLINICAL INFORMATION: dizzy COMPARISON: None. DLP: 843.[address] scans at [facility] use at least one of these dose optimization techniques: automated exposure control; mA and/or kV adjustment per patient size (includes targeted exams where dose is matched to clinical indication); or iterative reconstruction. FINDINGS: No evidence of intracranial hemorrhage or mass effect. Ventricular system and basal cisterns are patent.No extra-axial fluid collections. No evidence of mass or mass effect. Normal landers-white differentiation. Incidental pineal cyst. Paranasal sinuses and mastoid air cells are well aerated. .Normal visualized soft tissues. CT/CT head wo con* [id number] IMPRESSION: 1. No evidence of intracranial hemorrhage or mass effect. 2. Normal landers-white differentiation. 3. No acute intracranial findings. Discharge Plan Discharge Patient Disposition: Home Clinical Impression: Dizziness Condition: Stable Prescriptions: No Action ferrous sulfate 325 mg (65 mg iron) tablet 325 mg PO DAILY RF: 0 PNV 29-1 29 mg iron- 1 mg tablet 1 tab PO BID RF: 0 acetaminophen [Tylenol Extra Strength] 500 mg Tablet 1,000 mg PO Q6H PRN (Reason: Pain) RF: 0 nitrofurantoin monohyd/m-cryst [Macrobid] 100 mg capsule 100 mg PO BID 5 Days Qty: 10 RF: 0 Discharge Orders: Discharge ED (Routine); Ordered 07/15/20 Ordered By: Bibiana Poole Discharge Diet: Advance as tolerated Discharge Activity: Resume usual activity Patient Instructions: Dizziness (ED) Coding Level of Care Code ED [employer] for Comfortg Fwd Exam Comprehensive
[2020-07-15] MEDS: sodium chloride 0.9% 1,000 ML 999 ML IV (12:17)
[2020-07-15] MEDS: ondansetron 2 mg/ML SDV 2 mL 4 MG IVP (12:18)
[2020-07-15 12:19] LABS: Basophils % 0.3 %; Eosinophils % 0.7 %; Hematocrit 31.5 % (37.0-47.0); Hemoglobin 10.3 g/dL (11.5-15.3); Lymphocytes # 1.3 10^3/uL (0.8-4.8); Lymphocytes % 21.6 %; Mean Corpuscular HGB Conc 32.7 g/dL (30.0-36.0); Mean Corpuscular Hemoglobin 29.4 pg (28.0-34.0); Mean Platelet Volume 10.3 fL (7.4-10.4); Monocytes # 0.4 10^3/uL (0.2-0.9); Monocytes % 7.3 %; Neutrophils % 69.9 %; Nucleated Red Blood Cells % 0 %; Platelet Count 216 10^3/cmm (130-400); Red Cell Distribution Width 14.8 % (12.1-15.1); White Blood Count 5.9 10^3/uL (4.0-10.0)
[2020-07-15 12:42] LABS: Alanine Aminotransferase 14 U/L (0-33); Albumin Level 3.7 g/dL (3.5-5.2); Alkaline Phosphatase 65 IU/L (35-105); Anion Gap 15.8 (5-19); Aspartate Amino Transferase 11 U/L (0-32); Blood Urea Nitrogen 5 mg/dL (6-20); Calcium 8.7 mg/dL (8.5-10.5); Carbon Dioxide 19 mmol/L (22-29); Chloride 104 mmol/L (98-107); Globulin 2.9 g/dL (1.3-4.6); Glomerular Filtration Rate 278.2 mL/min (90-130); Glucose 78 mg/dL (65-115); Osmolality Calculated 276 mOsm/kg (285-295); Potassium 3.8 mmol/L (3.5-5.1); Sodium 135 mmol/L (136-145); Total Bilirubin 0.2 mg/dL (0.15-1.2); Total Protein 6.6 g/dL (6.6-8.7)
[2020-07-15] MEDS: HYDROcodone-acetaminophen 5-325 mg Tablet 1 TAB PO (13:25)
[2020-07-15 13:28] VITALS: BP 128/64; PULSE 74; RESP 18; TEMP 37.1; O2SAT 98
== END 2020-07-15 13:34 | disposition home or self-care (01) ==
PROVIDERS: Emergency Provider Emergency Medicine
DX: O26.892 Other specified pregnancy related conditions, second trimester (principal); R42 Dizziness and giddiness; O99.332 Smoking (tobacco) complicating pregnancy, second trimester; F17.210 Nicotine dependence, cigarettes, uncomplicated; Z3A.17 17 weeks gestation of pregnancy
CPT/HCPCS: 12345; 70450; 80053; 85025; 96361; 96374; 96375; 99282; 99283; J2405; J7030